=== PATIENT | male | born 1950 | race Caucasian/White ===

== ENCOUNTER 2018-08-04 12:43 | Inpatient (IN) | payer MEDICARE, BC ==
[2018-08-04 15:08] LABS: ADD MAN DIFF? NO
[2018-08-04] MEDS: SODIUM CHLORIDE 0.9% 1L BAG IV* (15:16)
[2018-08-04 15:18] LABS: BASOPHILS % 0.3 % (0.0-2.0); EOSINOPHILS % 0.2 % (0.0-7.0); HEMATOCRIT 43.2 % (42.0-52.0); HEMOGLOBIN 14.4 g/dl (14.0-18.0); LYMPHOCYTES % 21.6 % (15.0-51.0); MEAN CORPUSCULAR HEMOGLOBIN 29.2 pg (29.0-33.0); MEAN CORPUSCULAR HGB CONC 33.3 g/dl (32.0-37.0); MEAN CORPUSCULAR VOLUME 87.6 fl (82.0-101.0); MEAN PLATELET VOLUME 12.2 fl (7.4-10.4); MONOCYTE # 0.9 10^3/ul (0.3-0.9); MONOCYTES % 10.2 % (0.0-11.0); NEUTROPHIL # 6.1 10^3/ul (1.6-7.5); NEUTROPHILS % 66.9 % (39.0-77.0); PLATELET COUNT 152 10^3/UL (140-415); POSITIVE DIFF @See below; RED BLOOD COUNT 4.93 10^6/ul (4.70-6.10); RED CELL DISTRIBUTION WIDTH 13.6 % (11.5-14.5)
[2018-08-04 15:18] LABS: WHITE BLOOD COUNT 9.2 10^3/ul (4.8-10.8)
[2018-08-04] MEDS: LEVALBUTEROL (NEB) 1.25 MG/0.5 ML AMP INH (15:24)
[2018-08-04] MEDS: IPRATROPIUM (NEB) 0.5 MG/2.5 ML AMP NEB (15:24)
[2018-08-04 15:34] LABS: INR 1.04; PROTIME 13.7 Sec (11.9-14.9); PT RATIO 1.1
[2018-08-04 15:35] LABS: PARTIAL THROMBOPLASTIN TIME 27.8 Sec (23.0-35.0)
[2018-08-04 15:41] LABS: ALANINE AMINOTRANSFERASE 59 IU/L (13-69); ALBUMIN 4.3 g/dl (3.3-4.9); ALBUMIN/GLOBULIN RATIO 0.84; ALKALINE PHOSPHATASE 79 IU/L (42-121); ANION GAP 9 (5-13); ASPARTATE AMINO TRANSFERASE 98 IU/L (15-46); BILIRUBIN,INDIRECT 0.7 mg/dl (0-1.1); BILIRUBIN,TOTAL 0.7 mg/dl (0.2-1.3); BLOOD UREA NITROGEN 21 mg/dl (7-20); CALCIUM 6.2 mg/dl (8.4-10.2); CARBON DIOXIDE 30 mmol/L (21-31); CHLORIDE 102 mmol/L (97-110); CREATININE 0.88 mg/dl (0.61-1.24); Estimated GFR > 60 mL/min (>60); GLUCOSE 126 mg/dl (70-220); POTASSIUM 4.3 mmol/L (3.5-5.1); SODIUM 141 mmol/L (135-144); TOTAL PROTEIN 9.4 g/dl (6.1-8.1)
[2018-08-04 15:52] LABS: TROPONIN-I < 0.012 ng/ml (0.000-0.120)
[2018-08-04] MEDS: IPRATROPIUM (NEB) 0.5 MG/2.5 ML AMP HHN (17:01)
[2018-08-04] MEDS: LEVALBUTEROL (NEB) 1.25 MG/0.5 ML AMP HHN (17:01)
[2018-08-04] MEDS: ASPIRIN 81 MG TAB PO (17:03)
[2018-08-04] MEDS: NITROGLYCERIN 2% 1 GM OINT PKT TD (17:03)
[2018-08-04 17:13] LABS: BAND NEUTROPHILS #M 0.2 10^3/ul (0.0-0.6); BAND NEUTROPHILS % (M) 3 % (0-4); EOSINOPHILS % (M) 1 % (0-7); GIANT THROMBO% (M) 2 % (0-0); LYMPHOCYTES #M 1.3 10^3/ul (0.8-2.9); LYMPHOCYTES % (M) 15 % (15-51); MONOCYTE #M 1.1 10^3/ul (0.3-0.9); MONOCYTES % (M) 12 % (0-11); PLATELET ESTIMATE NORMAL; REACTIVE LYMPHOCYTES #M 0.4 10^3/ul (0.0-0.0); REACTIVE LYMPHOCYTES% (M) 5 % (0-0); SEG NEUT #M 5.9 10^3/ul (1.6-7.5); SEGMENTED NEUTROPHILS (M) % 64 % (39-77)
[2018-08-04] MEDS ORDERED: ACETAMINOPHEN 325 MG TAB PO (19:00)
[2018-08-04] MEDS ORDERED: ONDANSETRON 4 MG INJ IV (19:00)
[2018-08-04] MEDS ORDERED: HYDROCODONE/APAP (5/325) TAB PO (19:00)
[2018-08-04] MEDS ORDERED: ZOLPIDEM 5 MG TAB PO (19:00)
[2018-08-04] MEDS ORDERED: NITROGLYCERIN (SL) 0.4 MG TAB SL (19:00)
[2018-08-04] MEDS ORDERED: morphine 2 MG INJ IV (19:00)
[2018-08-04] MEDS ORDERED: NACL 0.9% 3 ML SYG IV (19:00)
[2018-08-04 19:06] LABS: LACTIC ACID 1.7 mmol/L (0.5-2.0)
[2018-08-04] MEDS: LEVOFLOXACIN 500 MG TAB PO (19:52)
[2018-08-04] MEDS: METHYLPREDNISOLONE 125 MG INJ IV (19:52)
[2018-08-04] MEDS: TAMSULOSIN (SR) 0.4 MG CAP PO (23:34)
[2018-08-05] MEDS: GUAIFENESIN/CODEINE 5ML CUP PO (00:02)
[2018-08-05 01:14] LABS: TROPONIN-I < 0.012 ng/ml (0.000-0.120)
[2018-08-05] MEDS: ALBUTEROL/IPRATROPIUM (NEB) 3 ML AMP HHN ×4 (02:55→21:32)
[2018-08-05 06:17] LABS: ADD MAN DIFF? NO
[2018-08-05 06:20] LABS: BASOPHILS % 0.3 % (0.0-2.0); HEMATOCRIT 37.7 % (42.0-52.0); HEMOGLOBIN 12.4 g/dl (14.0-18.0); LYMPHOCYTES % 13.3 % (15.0-51.0); MEAN CORPUSCULAR HEMOGLOBIN 28.9 pg (29.0-33.0); MEAN CORPUSCULAR HGB CONC 32.9 g/dl (32.0-37.0); MEAN CORPUSCULAR VOLUME 87.9 fl (82.0-101.0); MEAN PLATELET VOLUME 11.9 fl (7.4-10.4); MONOCYTE # 0.2 10^3/ul (0.3-0.9); MONOCYTES % 2.5 % (0.0-11.0); NEUTROPHIL # 6.3 10^3/ul (1.6-7.5); NEUTROPHILS % 82.7 % (39.0-77.0); PLATELET COUNT 148 10^3/UL (140-415); POSITIVE DIFF @See below; RED BLOOD COUNT 4.29 10^6/ul (4.70-6.10); RED CELL DISTRIBUTION WIDTH 13.4 % (11.5-14.5)
[2018-08-05 06:20] LABS: WHITE BLOOD COUNT 7.7 10^3/ul (4.8-10.8)
[2018-08-05 06:48] LABS: PHOSPHORUS 5.6 mg/dl (2.5-4.9)
[2018-08-05 06:48] LABS: CHOL/HDL RATIO 8.2 RATIO; CHOLESTEROL 141 mg/dl (100-200); HDL CHOLESTEROL 17 mg/dl (30-78); LDL CHOLESTEROL,CALCULATED 97 mg/dl; MAGNESIUM 1.7 mg/dl (1.7-2.5); TRIGLYCERIDES 133 mg/dl (0-149)
[2018-08-05 06:50] LABS: ALANINE AMINOTRANSFERASE 52 IU/L (13-69); ALBUMIN 3.6 g/dl (3.3-4.9); ALBUMIN/GLOBULIN RATIO 0.81; ALKALINE PHOSPHATASE 61 IU/L (42-121); ANION GAP 8 (5-13); ASPARTATE AMINO TRANSFERASE 78 IU/L (15-46); BILIRUBIN,INDIRECT 0.4 mg/dl (0-1.1); BILIRUBIN,TOTAL 0.4 mg/dl (0.2-1.3); BLOOD UREA NITROGEN 17 mg/dl (7-20); CARBON DIOXIDE 26 mmol/L (21-31); CHLORIDE 106 mmol/L (97-110); CREATININE 0.74 mg/dl (0.61-1.24); Estimated GFR > 60 mL/min (>60); GLUCOSE 202 mg/dl (70-220); POTASSIUM 4.6 mmol/L (3.5-5.1); SODIUM 140 mmol/L (135-144)
[2018-08-05 06:54] LABS: CALCIUM 5.5 mg/dl (8.4-10.2)
[2018-08-05 06:57] LABS: B-TYPE NATRIURETIC PEPTIDE 820 PG/ML (0-125)
[2018-08-05 06:58] LABS: CREATINE KINASE 2130 IU/L (23-200)
[2018-08-05 07:04] LABS: CK INDEX 0.1; TROPONIN-I < 0.012 ng/ml (0.000-0.120)
[2018-08-05 07:05] LABS: FREE T4 (FREE THYROXINE) 1.61 ng/dl (0.78-2.44)
[2018-08-05 07:19] LABS: THYROID STIMULATING HORMONE 0.186 MIU/L (0.465-4.680)
[2018-08-05] MEDS ORDERED: CALCIUM GLUCONATE 10% 2 GM in DEXTROSE 5% 100 ML IVPB (08:15)
[2018-08-05] MEDS: LOSARTAN 50 MG TAB PO (08:25)
[2018-08-05] MEDS: ENOXAPARIN 40 MG/0.4 ML SYG SC (08:29)
[2018-08-05] MEDS: CALCIUM GLUCONATE 10% 2 GM in SOD CHLORIDE 0.9% 100 ML IVPB (09:31)
[2018-08-05] MEDS: BUDESONIDE (NEB) 0.5MG/2ML AMP HHN ×2 (11:30→21:31)
[2018-08-05 11:31] LABS: IONIZED CALCIUM 0.7 mmol/L (1.1-1.4)
[2018-08-05] MEDS: CEFTRIAXONE 1 GM/50 ML (PMX) 50 ML IVPB (11:40)
[2018-08-05] MEDS ORDERED: LEVALBUTEROL (NEB) 0.63 MG/3 ML AMP HHN (13:00)
[2018-08-05] MEDS: AZITHROMYCIN 500MG/NS (PMX) 250 ML IVPB (13:52)
[2018-08-05] MEDS: HYDROCHLOROTHIAZIDE 25 MG TAB PO (14:15)
[2018-08-05] MEDS: CALCITRIOL 1 MCG INJ IV (14:20)
[2018-08-05] MEDS: TIOTROPIUM 18 MCG CAPSULE INHA DEV INH (14:21)
[2018-08-05] MEDS: FLUTICASONE/VILANTEROL 200-25 INH DEVICE INH (14:21)
[2018-08-05] MEDS: CALCIUM CARBONATE 1.25 GM TAB PO ×2 (14:21→20:48)
[2018-08-05 14:23] LABS: ADD UMIC YES; UR ASCORBIC ACID NEGATIVE (NEGATIVE); UR BACTERIA FEW /HPF (NONE SEEN); UR BILIRUBIN (Dip) NEGATIVE (NEGATIVE); UR BLOOD (Dip) 1+ mg/dL (NEGATIVE); UR CLARITY SLIGHTLY CLOUDY (CLEAR); UR COLOR YELLOW (YELLOW); UR GLUCOSE (Dip) NEGATIVE (NEGATIVE); UR KETONES (Dip) NEGATIVE (NEGATIVE); UR LEUKOCYTE ESTERASE (Dip) NEGATIVE Leu/ul (NEGATIVE); UR MUCUS FEW /HPF (NONE SEEN); UR NITRITE (Dip) NEGATIVE (NEGATIVE); UR RBC 2 /HPF (0-5); UR SPECIFIC GRAVITY (Dip) 1.018 (1.003-1.030); UR TOTAL PROTEIN (Dip) NEGATIVE (NEGATIVE); UR UROBILINOGEN (Dip) 2+ mg/dL (NEGATIVE); UR WBC 2 /HPF (0-5)
[2018-08-05] MEDS: ERGOCALCIFEROL (8000 UNITS/ML PO SYG) PO (14:41)
[2018-08-05] MEDS: CALCIUM GLUCONATE 10% 2 GM in DEXTROSE 5% 100 ML IVPB ×2 (15:15→20:22)
[2018-08-05] MEDS: HYDROCHLOROTHIAZIDE 12.5 MG CAP PO (15:15)
[2018-08-05 16:05] LABS: ALANINE AMINOTRANSFERASE 71 IU/L (13-69); ALBUMIN 3.5 g/dl (3.3-4.9); ALBUMIN/GLOBULIN RATIO 0.81; ALKALINE PHOSPHATASE 73 IU/L (42-121); ANION GAP 12 (5-13); ASPARTATE AMINO TRANSFERASE 100 IU/L (15-46); BILIRUBIN,INDIRECT 0.2 mg/dl (0-1.1); BILIRUBIN,TOTAL 0.2 mg/dl (0.2-1.3); BLOOD UREA NITROGEN 24 mg/dl (7-20); CARBON DIOXIDE 22 mmol/L (21-31); CHLORIDE 104 mmol/L (97-110); CREATININE 0.95 mg/dl (0.61-1.24); Estimated GFR > 60 mL/min (>60); GLUCOSE 194 mg/dl (70-220); POTASSIUM 3.8 mmol/L (3.5-5.1); SODIUM 138 mmol/L (135-144); TOTAL PROTEIN 7.8 g/dl (6.1-8.1)
[2018-08-05 16:08] LABS: CALCIUM 5.9 mg/dl (8.4-10.2)
[2018-08-05] MEDS: MONTELUKAST 10 MG TAB PO (20:48)
[2018-08-05] MEDS: CALCITRIOL 0.25 MCG CAP PO (20:48)
[2018-08-05] MEDS: TAMSULOSIN (SR) 0.4 MG CAP PO (20:48)
[2018-08-05] MEDS: hydrALAzine 20 MG INJ IV (22:49)
[2018-08-06 04:59] LABS: AADO2 Arterial 87.3 mmHg (7.0-24.0); Allen Test ACCEPTAB; Arterial Base Excess 5.3 mmol/L (-3.0-3); Arterial Blood Gas Oxygen Sat 93.9 mmHG (95.0-98.0); Arterial COHb 0.3 % (0.0-3.0); Arterial Fraction of Oxyhgb 93.4 % (93.0-99.0); Arterial HCO3 27.2 mmol/L (22.0-26.0); Arterial MetHb 0.2 % (0.0-1.5); Arterial pCO2 31.4 mmhg (35-45); MODE NASAL CANNULA; Site Right Radial
[2018-08-06 06:04] LABS: ADD MAN DIFF? NO
[2018-08-06 06:15] LABS: WHITE BLOOD COUNT 15.2 10^3/ul (4.8-10.8)
[2018-08-06 06:15] LABS: BASOPHILS % 0.2 % (0.0-2.0); HEMATOCRIT 36.7 % (42.0-52.0); HEMOGLOBIN 12.3 g/dl (14.0-18.0); LYMPHOCYTES # 2.3 10^3/ul (0.8-2.9); LYMPHOCYTES % 15.3 % (15.0-51.0); MEAN CORPUSCULAR HEMOGLOBIN 28.9 pg (29.0-33.0); MEAN CORPUSCULAR HGB CONC 33.5 g/dl (32.0-37.0); MEAN CORPUSCULAR VOLUME 86.2 fl (82.0-101.0); MEAN PLATELET VOLUME 12.5 fl (7.4-10.4); MONOCYTE # 1.1 10^3/ul (0.3-0.9); MONOCYTES % 7.2 % (0.0-11.0); NEUTROPHIL # 11.6 10^3/ul (1.6-7.5); NEUTROPHILS % 76.2 % (39.0-77.0); PLATELET COUNT 192 10^3/UL (140-415); RED BLOOD COUNT 4.26 10^6/ul (4.70-6.10); RED CELL DISTRIBUTION WIDTH 13.3 % (11.5-14.5)
[2018-08-06 06:43] LABS: ALANINE AMINOTRANSFERASE 77 IU/L (13-69); ALBUMIN 3.6 g/dl (3.3-4.9); ALBUMIN/GLOBULIN RATIO 0.85; ALKALINE PHOSPHATASE 76 IU/L (42-121); ANION GAP 12 (5-13); ASPARTATE AMINO TRANSFERASE 100 IU/L (15-46); BILIRUBIN,INDIRECT 0.3 mg/dl (0-1.1); BILIRUBIN,TOTAL 0.3 mg/dl (0.2-1.3); BLOOD UREA NITROGEN 25 mg/dl (7-20); CALCIUM 7.7 mg/dl (8.4-10.2); CARBON DIOXIDE 26 mmol/L (21-31); CHLORIDE 102 mmol/L (97-110); CREATININE 1.02 mg/dl (0.61-1.24); Estimated GFR > 60 mL/min (>60); GLUCOSE 139 mg/dl (70-220); POTASSIUM 3.7 mmol/L (3.5-5.1); SODIUM 140 mmol/L (135-144); TOTAL PROTEIN 7.8 g/dl (6.1-8.1)
[2018-08-06 06:47] LABS: MAGNESIUM 1.7 mg/dl (1.7-2.5)
[2018-08-06] MEDS: FLUTICASONE/VILANTEROL 200-25 INH DEVICE INH (08:20)
[2018-08-06] MEDS: CALCIUM CARBONATE 1.25 GM TAB PO ×3 (08:21→21:19)
[2018-08-06] MEDS: LOSARTAN 50 MG TAB PO (08:21)
[2018-08-06] MEDS: HYDROCHLOROTHIAZIDE 12.5 MG CAP PO (08:21)
[2018-08-06] MEDS: TIOTROPIUM 18 MCG CAPSULE INHA DEV INH (08:21)
[2018-08-06] MEDS: ASPIRIN 81 MG TAB PO (08:21)
[2018-08-06] MEDS: CALCITRIOL 0.25 MCG CAP PO ×2 (08:21→21:19)
[2018-08-06] MEDS: ALBUTEROL/IPRATROPIUM (NEB) 3 ML AMP HHN ×3 (08:38→20:16)
[2018-08-06] MEDS: BUDESONIDE (NEB) 0.5MG/2ML AMP HHN ×2 (08:38→20:16)
[2018-08-06] MEDS: ENOXAPARIN 40 MG/0.4 ML SYG SC (08:46)
[2018-08-06] MEDS: CEFTRIAXONE 1 GM/50 ML (PMX) 50 ML IVPB (09:08)
[2018-08-06] MEDS: AZITHROMYCIN 500MG/NS (PMX) 250 ML IVPB (09:50)
[2018-08-06] MEDS: hydrALAzine 20 MG INJ IV (16:03)
[2018-08-06] MEDS: TAMSULOSIN (SR) 0.4 MG CAP PO (21:19)
[2018-08-06] MEDS: MONTELUKAST 10 MG TAB PO (21:19)
[2018-08-06] MEDS ORDERED: morphine LIQ (10 MG/5 ML) CUP PO (22:30)
[2018-08-07 03:47] LABS: PTH CALCIUM 5.9 mg/dL (8.6-10.3)
[2018-08-07 05:53] LABS: ADD MAN DIFF? NO
[2018-08-07 05:57] LABS: BASOPHILS % 0.3 % (0.0-2.0); EOSINOPHILS % 0.1 % (0.0-7.0); HEMATOCRIT 39.6 % (42.0-52.0); HEMOGLOBIN 13.2 g/dl (14.0-18.0); LYMPHOCYTES # 1.9 10^3/ul (0.8-2.9); LYMPHOCYTES % 21.9 % (15.0-51.0); MEAN CORPUSCULAR HEMOGLOBIN 28.6 pg (29.0-33.0); MEAN CORPUSCULAR HGB CONC 33.3 g/dl (32.0-37.0); MEAN CORPUSCULAR VOLUME 85.7 fl (82.0-101.0); MEAN PLATELET VOLUME 11.9 fl (7.4-10.4); MONOCYTE # 0.7 10^3/ul (0.3-0.9); MONOCYTES % 8.1 % (0.0-11.0); PLATELET COUNT 239 10^3/UL (140-415); RED BLOOD COUNT 4.62 10^6/ul (4.70-6.10); RED CELL DISTRIBUTION WIDTH 13.4 % (11.5-14.5)
[2018-08-07 05:57] LABS: WHITE BLOOD COUNT 8.8 10^3/ul (4.8-10.8)
[2018-08-07 06:26] LABS: MAGNESIUM 1.6 mg/dl (1.7-2.5)
[2018-08-07 06:26] LABS: PHOSPHORUS 6.8 mg/dl (2.5-4.9)
[2018-08-07 06:40] LABS: ANION GAP 13 (5-13); BLOOD UREA NITROGEN 29 mg/dl (7-20); CALCIUM 7.8 mg/dl (8.4-10.2); CARBON DIOXIDE 27 mmol/L (21-31); CHLORIDE 101 mmol/L (97-110); CREATININE 0.92 mg/dl (0.61-1.24); Estimated GFR > 60 mL/min (>60); GLUCOSE 113 mg/dl (70-220); POTASSIUM 3.8 mmol/L (3.5-5.1); SODIUM 141 mmol/L (135-144)
[2018-08-07] MEDS: ALBUTEROL/IPRATROPIUM (NEB) 3 ML AMP HHN ×3 (08:18→20:02)
[2018-08-07] MEDS: TIOTROPIUM 18 MCG CAPSULE INHA DEV INH (08:23)
[2018-08-07] MEDS: HYDROCHLOROTHIAZIDE 12.5 MG CAP PO (08:23)
[2018-08-07] MEDS: FLUTICASONE/VILANTEROL 200-25 INH DEVICE INH (08:23)
[2018-08-07] MEDS: CALCITRIOL 0.25 MCG CAP PO ×2 (08:23→21:08)
[2018-08-07] MEDS: CALCIUM CARBONATE 1.25 GM TAB PO ×3 (08:24→21:09)
[2018-08-07] MEDS: ASPIRIN 81 MG TAB PO (08:24)
[2018-08-07] MEDS: CEFTRIAXONE 1 GM/50 ML (PMX) 50 ML IVPB (08:24)
[2018-08-07] MEDS: LOSARTAN 50 MG TAB PO (08:24)
[2018-08-07] MEDS: ENOXAPARIN 40 MG/0.4 ML SYG SC (08:29)
[2018-08-07] MEDS: AZITHROMYCIN 500MG/NS (PMX) 250 ML IVPB (09:08)
[2018-08-07] MEDS: BUDESONIDE (NEB) 0.5MG/2ML AMP HHN ×2 (09:33→20:02)
[2018-08-07 09:57] LABS: PTH INTACT 8 pg/mL (14-64)
[2018-08-07] MEDS: MAGNESIUM SULFATE 2 GM/50 ML 50 ML IVPB (12:09)
[2018-08-07] MEDS: METHYLPREDNISOLONE 40 MG INJ IV ×2 (12:09→17:32)
[2018-08-07] MEDS: CALCITRIOL 1 MCG INJ IV (14:32)
[2018-08-07] MEDS: FINASTERIDE 5 MG TAB PO (14:32)
[2018-08-07] MEDS: MONTELUKAST 10 MG TAB PO (21:09)
[2018-08-07] MEDS: TAMSULOSIN (SR) 0.4 MG CAP PO (21:09)
[2018-08-08] MEDS: METHYLPREDNISOLONE 40 MG INJ IV ×5 (00:08→23:43)
[2018-08-08] MEDS: hydrALAzine 20 MG INJ IV ×2 (01:45→21:11)
[2018-08-08 06:30] LABS: MAGNESIUM 1.9 mg/dl (1.7-2.5)
[2018-08-08 06:33] LABS: ANION GAP 15 (5-13); BLOOD UREA NITROGEN 28 mg/dl (7-20); CALCIUM 8.1 mg/dl (8.4-10.2); CARBON DIOXIDE 26 mmol/L (21-31); CHLORIDE 98 mmol/L (97-110); CREATININE 0.74 mg/dl (0.61-1.24); Estimated GFR > 60 mL/min (>60); GLUCOSE 217 mg/dl (70-220); POTASSIUM 3.8 mmol/L (3.5-5.1); SODIUM 139 mmol/L (135-144)
[2018-08-08] MEDS: CEFTRIAXONE 1 GM/50 ML (PMX) 50 ML IVPB (09:19)
[2018-08-08] MEDS: ASPIRIN 81 MG TAB PO (09:27)
[2018-08-08] MEDS: CALCIUM CARBONATE 1.25 GM TAB PO ×3 (09:27→21:10)
[2018-08-08] MEDS: FINASTERIDE 5 MG TAB PO (09:27)
[2018-08-08] MEDS: TIOTROPIUM 18 MCG CAPSULE INHA DEV INH (09:27)
[2018-08-08] MEDS: FLUTICASONE/VILANTEROL 200-25 INH DEVICE INH (09:27)
[2018-08-08] MEDS: LOSARTAN 50 MG TAB PO (09:28)
[2018-08-08] MEDS: HYDROCHLOROTHIAZIDE 25 MG TAB PO (09:29)
[2018-08-08] MEDS ORDERED: ERGOCALCIFEROL (8000 UNITS/ML PO SYG) PO (09:30)
[2018-08-08] MEDS: ENOXAPARIN 40 MG/0.4 ML SYG SC (09:30)
[2018-08-08] MEDS: ALBUTEROL/IPRATROPIUM (NEB) 3 ML AMP HHN ×3 (10:06→19:45)
[2018-08-08] MEDS: BUDESONIDE (NEB) 0.5MG/2ML AMP HHN ×2 (10:06→19:45)
[2018-08-08] MEDS: DOCUSATE SODIUM 100 MG CAP PO ×2 (11:05→21:10)
[2018-08-08] MEDS: ERGOCALCIFEROL 50,000 UNIT CAP PO (11:09)
[2018-08-08] MEDS: CALCITRIOL 0.25 MCG CAP PO ×2 (11:09→22:04)
[2018-08-08] MEDS: MONTELUKAST 10 MG TAB PO (21:10)
[2018-08-08] MEDS: TAMSULOSIN (SR) 0.4 MG CAP PO (21:10)
[2018-08-09] MEDS: METHYLPREDNISOLONE 40 MG INJ IV ×2 (05:27→13:41)
[2018-08-09 07:27] LABS: ANION GAP 12 (5-13); BLOOD UREA NITROGEN 32 mg/dl (7-20); CALCIUM 8.9 mg/dl (8.4-10.2); CARBON DIOXIDE 26 mmol/L (21-31); CHLORIDE 100 mmol/L (97-110); CREATININE 0.73 mg/dl (0.61-1.24); Estimated GFR > 60 mL/min (>60); GLUCOSE 166 mg/dl (70-220); POTASSIUM 4.1 mmol/L (3.5-5.1); SODIUM 138 mmol/L (135-144)
[2018-08-09] MEDS: FLUTICASONE/VILANTEROL 200-25 INH DEVICE INH (08:19)
[2018-08-09] MEDS: CALCIUM CARBONATE 1.25 GM TAB PO ×2 (08:19→13:41)
[2018-08-09] MEDS: TIOTROPIUM 18 MCG CAPSULE INHA DEV INH (08:19)
[2018-08-09] MEDS: DOCUSATE SODIUM 100 MG CAP PO (08:19)
[2018-08-09] MEDS: FINASTERIDE 5 MG TAB PO (08:19)
[2018-08-09] MEDS: LOSARTAN 50 MG TAB PO (08:20)
[2018-08-09] MEDS: ASPIRIN 81 MG TAB PO (08:20)
[2018-08-09] MEDS: HYDROCHLOROTHIAZIDE 25 MG TAB PO (08:20)
[2018-08-09] MEDS: ENOXAPARIN 40 MG/0.4 ML SYG SC (08:27)
[2018-08-09] MEDS: CEFTRIAXONE 1 GM/50 ML (PMX) 50 ML IVPB (08:31)
[2018-08-09] MEDS: ALBUTEROL/IPRATROPIUM (NEB) 3 ML AMP HHN ×2 (08:58→14:33)
[2018-08-09] MEDS: BUDESONIDE (NEB) 0.5MG/2ML AMP HHN (08:58)
[2018-08-09] MEDS: CALCITRIOL 0.5 MCG CAPSULE PO (13:41)
[2018-08-10 10:11] LABS: NIL 0.03 IU/mL; QUANTIFERON(R)-TB GOLD POSITIVE (NEGATIVE); TB-NIL 0.85 IU/mL; TB2-NIL 1.12 IU/mL
== END 2018-08-09 16:05 | disposition home or self-care (01) | DRG 190 ==
LOC: E/R 12:43 → 6WM 17:01
DX: J44.0 Chronic obstructive pulmonary disease with (acute) lower respiratory infection (principal); J18.9 Pneumonia, unspecified organism; E87.3 Alkalosis; J44.1 Chronic obstructive pulmonary disease with (acute) exacerbation; J20.8 Acute bronchitis due to other specified organisms; R07.81 Pleurodynia; E83.51 Hypocalcemia; F17.210 Nicotine dependence, cigarettes, uncomplicated; E55.9 Vitamin D deficiency, unspecified; E20.0 Idiopathic hypoparathyroidism; N40.1 Benign prostatic hyperplasia with lower urinary tract symptoms; R39.14 Feeling of incomplete bladder emptying; B18.2 Chronic viral hepatitis C; I71.2 Thoracic aortic aneurysm, without rupture; E86.0 Dehydration
CPT/HCPCS: 36600; 71045; 71250; 80048; 80053; 80061; 81001; 82306; 82330; 82550; 82553; 82652; 82803; 83036; 83605; 83735; 83880; 83970; 84100; 84439; 84443; 84484; 85025; 85610; 85730; 86480; 87040; 87086; 93005; 93306; 94640; 94664; 99285-25; G0378